=== PATIENT | female | born 1945 | race Caucasian/White ===

== ENCOUNTER 2023-01-30 00:43 | Inpatient (IN) | payer MEDICARE, BC ==
[~2023-01-30] VITALS: Ht 154.9 cm; Wt 54.4 kg
[2023-01-30] MEDS ORDERED: ATOR40TA PO (01:08)
[2023-01-30] MEDS ORDERED: METF-495 PO (01:08)
[2023-01-30] MEDS ORDERED: HYDR-3972 PO (01:08)
[2023-01-30] MEDS ORDERED: ALPR1TAB7 PO (01:08)
[2023-01-30] MEDS ORDERED: MECL-225 PO (01:08)
[2023-01-30] MEDS ORDERED: BUPR-53 PO (01:08)
[2023-01-30] MEDS ORDERED: ERGO500040 PO (01:08)
[2023-01-30] MEDS ORDERED: ESCI20TA PO (01:08)
[2023-01-30] MEDS ORDERED: diclofenac TOP (01:08)
[2023-01-30] MEDS ORDERED: EXEM25TA PO (01:08)
[2023-01-30] MEDS ORDERED: TRAM50TA2 PO (01:08)
[2023-01-30] MEDS ORDERED: ASPI81TA31 PO (01:08)
[2023-01-30] MEDS ORDERED: SITA100T PO (01:08)
[2023-01-30 01:32] LABS: BASOPHILS % (AUTO) 0.3 % (0.0-2.0); EOSINOPHILS # (AUTO) 0.1 K/uL (0.0-0.7); EOSINOPHILS % (AUTO) 0.6 % (0.0-7.0); HEMATOCRIT 42.6 % (31.2-41.9); HEMOGLOBIN 14.1 g/dL (10.9-14.3); LYMPHOCYTES # (AUTO) 8.2 K/uL (0.8-4.8); LYMPHOCYTES % (AUTO) 60.7 % (20.5-51.5); MEAN CORPUSCULAR HEMOGLOBIN 30.5 uug (24.7-32.8); MEAN CORPUSCULAR HGB CONC 33 g/dL (32.3-35.6); MEAN CORPUSCULAR VOLUME 91.9 fL (75.5-95.3); MONOCYTES # (AUTO) 0.5 K/uL (0.1-1.30); NEUTROPHILS # (AUTO) 4.6 K/uL (1.8-8.9); NEUTROPHILS % (AUTO) 34.4 % (38.5-71.5); PLATELET COUNT (AUTO) 254 K/uL (179-408); RED BLOOD CELL COUNT(AUTO) 4.63 MIL/uL (3.63-4.92); RED CELL DISTRIBUTION WIDTH 13.4 % (12.3-17.7); WHITE BLOOD COUNT (AUTO) 13.5 K/uL (3.8-11.8)
[2023-01-30 01:34] LABS: DIFFERENTIAL COMMENT 1
[2023-01-30 01:45] LABS: CALCIUM 9.4 mg/dL (8.5-10.1); CARBON DIOXIDE 29 mmol/L (21-32); CHLORIDE 103 mmol/L (98-107); GLUCOSE 287 mg/dL (74-106); POTASSIUM 3.6 mmol/L (3.5-5.1); SODIUM SERUM 140 mmol/L (136-145); UREA NITROGEN, BLOOD 21 mg/dL (7-18)
[2023-01-30 01:51] LABS: ALANINE AMINOTRANSFERASE 15 U/L (14-59); ALBUMIN 3.5 g/dL (3.4-5.0); ALKALINE PHOSPHATASE 68 U/L (50-136); ASPARTATE AMINOTRANSFERASE 6 U/L (15-37); BILIRUBIN,DIRECT 0.2 mg/dL (0.0-0.2); BILIRUBIN,TOTAL 0.4 mg/dL (0.2-1.0); TOTAL PROTEIN, SERUM 6.3 g/dL (6.4-8.2)
[2023-01-30 02:00] LABS: ETHANOL < 3 MG/DL (0-10)
[2023-01-30] MEDS ORDERED: ZOLPIDEM 5 MG TABLET PO PRN (04:45)
[2023-01-30] MEDS ORDERED: LORAZEPAM 0.5 MG TABLET PO PRN (04:45)
[2023-01-30] MEDS ORDERED: MAG HYDROX/AL HYDROX/SIMETH 30 ML LIQUID UDC PO PRN (04:45)
[2023-01-30] MEDS ORDERED: ACETAMINOPHEN 325 MG TABLET PO PRN (04:45)
[2023-01-30] MEDS ORDERED: MAGNESIUM HYDROXIDE 30 ML LIQUID UDC PO PRN (04:45)
[2023-01-30 08:08] VITALS: BP 151/71; TEMP 98; O2SAT 96
[2023-01-30] MEDS ORDERED: diphenhydrAMINE 50 MG CAPSULE PO PRN (09:00)
[2023-01-30] MEDS ORDERED: HYDROXYZINE PAMOATE 25 MG CAPSULE PO PRN (09:00)
[2023-01-30] MEDS: DULOXETINE 30 MG CAPSULE.DR PO SCH (09:00)
[2023-01-30] MEDS: ASPIRIN 81 MG TAB.CHEW PO SCH (11:30)
[2023-01-30] MEDS ORDERED: DEXTROSE 50% 50 ML DISP.SYRIN IV PRN (11:30)
[2023-01-30] MEDS ORDERED: EXEMESTANE 25 MG PO SCH (11:30)
[2023-01-30] MEDS ORDERED: ERGOCALCIFEROL 50,000 UNIT CAPSULE PO SCH (11:30)
[2023-01-30] MEDS ORDERED: HYDROCODONE/APAP 5-325MG TABLET PO PRN (11:30)
[2023-01-30] MEDS: BLOOD SUGAR DIAGNOSTIC 1 EACH STRIP VI SCH ×3 (11:30→21:22)
[2023-01-30 13:19] LABS: *BILIRUBIN,URIN NEGATIVE (NEGATIVE); *BLOOD, URINE NEGATIVE (NEGATIVE); *CLARITY,URINE CLEAR (CLEAR); *COLOR,URINE YELLOW (YELLOW); *KETONES,URINE TRACE (NEGATIVE); *PROTEIN,URINE NEGATIVE (NEGATIVE); *UROBILINOGEN,URINE 0.2 E.U./dl (NORMAL); LEUKOCYTE ESTERASE ,URINE NEGATIVE (NEGATIVE); NITRITE, URINE NEGATIVE (NEGATIVE); PH,URINE 5.5 (5.0-8.0); UGLUCOSE 2+ (NEGATIVE)
[2023-01-30] MEDS ORDERED: DULO30CA2 PO (13:19)
[2023-01-30 13:24] LABS: BACTERIA,URINE NONE SEEN /HPF (NONE SEEN); RBC,URINE 0-3 /HPF (0-3); SQUAMOUS EPITHELIAL CELL,UR FEW /HPF (NONE SEEN); WBC,URINE 0-3 /HPF (0-3)
[2023-01-30] MEDS ORDERED: DULOXETINE 30 MG CAPSULE.DR PO ONE (17:00)
[2023-01-30] MEDS ORDERED: TRAMADOL HCL 50 MG TABLET PO SCH (17:00)
[2023-01-30] MEDS: METFORMIN XR 500 MG TAB.SR.24H PO SCH (17:11)
[2023-01-30 20:00] VITALS: BP 164/79; TEMP 98; O2SAT 95
[2023-01-30] MEDS: ATORVASTATIN 40 MG TABLET PO SCH (21:00)
[2023-01-30] MEDS ORDERED: QUETIAPINE FUMARATE 25 MG TABLET PO SCH (21:00)
[2023-01-31 07:33] LABS: ALANINE AMINOTRANSFERASE 15 U/L (14-59); ALBUMIN 3.4 g/dL (3.4-5.0); ALKALINE PHOSPHATASE 65 U/L (50-136); ASPARTATE AMINOTRANSFERASE 7 U/L (15-37); BILIRUBIN,TOTAL 0.6 mg/dL (0.2-1.0); CALCIUM 8.9 mg/dL (8.5-10.1); CARBON DIOXIDE 25 mmol/L (21-32); CHLORIDE 105 mmol/L (98-107); CREATININE 0.6 mg/dL (0.6-1.3); GLUCOSE 203 mg/dL (74-106); POTASSIUM 3.9 mmol/L (3.5-5.1); SODIUM SERUM 139 mmol/L (136-145); UREA NITROGEN, BLOOD 8 mg/dL (7-18)
[2023-01-31] MEDS: BLOOD SUGAR DIAGNOSTIC 1 EACH STRIP VI SCH ×4 (07:39→20:39)
[2023-01-31 08:17] VITALS: BP 181/87; TEMP 97.9; O2SAT 96
[2023-01-31] MEDS: DULOXETINE 30 MG CAPSULE.DR PO SCH (09:00)
[2023-01-31] MEDS ORDERED: DULOXETINE 30 MG CAPSULE.DR PO SCH (09:00)
[2023-01-31] MEDS: ASPIRIN 81 MG TAB.CHEW PO SCH (09:00)
[2023-01-31 09:34] VITALS: BP 150/61; O2SAT 96
[2023-01-31] MEDS ORDERED: POLYVINYL ALCOHOL OPHT DROPS 15 ML BOTTLE EACHEYE SCH (13:00)
[2023-01-31] MEDS: POLYVINYL ALCOHOL OPHT DROPS 15 ML BOTTLE EACHEYE SCH ×2 (13:03→17:43)
[2023-01-31 16:20] VITALS: BP 164/74; TEMP 98; O2SAT 97
[2023-01-31] MEDS: NICOTINE 21 MG/24HR PATCH TD SCH (17:43)
[2023-01-31] MEDS: METFORMIN XR 500 MG TAB.SR.24H PO SCH ×3 (17:43→20:53)
[2023-01-31] MEDS: ATORVASTATIN 40 MG TABLET PO SCH (20:34)
[2023-01-31 20:49] VITALS: BP 165/76; TEMP 97.8; O2SAT 95
[2023-02-01] MEDS: BLOOD SUGAR DIAGNOSTIC 1 EACH STRIP VI SCH ×4 (06:56→20:23)
[2023-02-01 09:00] VITALS: BP 183/99; TEMP 98.4; O2SAT 98
[2023-02-01] MEDS: ASPIRIN 81 MG TAB.CHEW PO SCH ×2 (09:00→09:01)
[2023-02-01] MEDS: DULOXETINE 30 MG CAPSULE.DR PO SCH ×2 (09:00→09:01)
[2023-02-01] MEDS: POLYVINYL ALCOHOL OPHT DROPS 15 ML BOTTLE EACHEYE SCH ×3 (09:02→16:49)
[2023-02-01] MEDS: NICOTINE 21 MG/24HR PATCH TD SCH (09:02)
[2023-02-01] MEDS: ATORVASTATIN 40 MG TABLET PO SCH (20:22)
[2023-02-01 20:40] VITALS: BP 154/75; TEMP 98; O2SAT 96
[2023-02-02] MEDS: BLOOD SUGAR DIAGNOSTIC 1 EACH STRIP VI SCH ×4 (06:11→20:21)
[2023-02-02 08:47] VITALS: BP 184/75; TEMP 98; O2SAT 97
[2023-02-02] MEDS: NICOTINE 21 MG/24HR PATCH TD SCH (09:00)
[2023-02-02] MEDS: POLYVINYL ALCOHOL OPHT DROPS 15 ML BOTTLE EACHEYE SCH ×3 (09:00→17:00)
[2023-02-02] MEDS: DULOXETINE 30 MG CAPSULE.DR PO SCH (09:15)
[2023-02-02] MEDS: ASPIRIN 81 MG TAB.CHEW PO SCH (09:15)
[2023-02-02] MEDS: OLANZAPINE ZYDIS 5 MG TAB.RAPDIS PO SCH ×2 (09:16→17:21)
[2023-02-02] MEDS ORDERED: CLONIDINE-TTS 1 PATCH TD SCH (11:00)
[2023-02-02 16:15] VITALS: BP 114/79; TEMP 98; O2SAT 98
[2023-02-02] MEDS: METFORMIN XR 500 MG TAB.SR.24H PO SCH (18:00)
[2023-02-02 19:45] VITALS: BP 205/110; TEMP 98; O2SAT 98
[2023-02-02] MEDS ORDERED: CLONIDINE TTS 2 PATCH TD SCH (20:30)
[2023-02-02] MEDS: ATORVASTATIN 40 MG TABLET PO SCH (20:37)
[2023-02-02] MEDS ORDERED: CLONIDINE TTS 2 PATCH TD ONE (21:24)
[2023-02-02 21:40] VITALS: BP 155/105; TEMP 98; O2SAT 98
[2023-02-02 23:00] VITALS: BP 199/95; TEMP 98; O2SAT 98
[2023-02-02 23:05] VITALS: BP 202/105; TEMP 97.8; O2SAT 98
[2023-02-03] MEDS ORDERED: DIPH25CA83 PO (03:21)
[2023-02-03] MEDS ORDERED: ACET-3117 PO (03:21)
[2023-02-03] MEDS ORDERED: HYDR25CA PO (03:21)
[2023-02-03] MEDS ORDERED: MAG355OR18 PO (03:21)
[2023-02-03] MEDS ORDERED: OLAN5TAB6 PO (03:21)
[2023-02-03] MEDS ORDERED: POLY15DR17 OP (03:21)
[2023-02-03] MEDS ORDERED: NICO1PAT35 TD (03:21)
[2023-02-03] MEDS ORDERED: MAGN400O6 PO (03:21)
[2023-02-03] MEDS ORDERED: CLON1PAT2 TD (03:21)
[2023-02-04] MEDS ORDERED: NICO-625 TD (17:07)
[2023-02-04] MEDS ORDERED: METF-442 PO (17:10)
== END 2023-02-03 04:58 | disposition short-term general hospital (02) | DRG 885 ==
LOC: ER 00:59 → GPS 03:29
PROVIDERS: ADMIT Psychiatry & Neurology Psychiatry; ATTEND Nurse Practitioner Acute Care
DX: F33.3 Major depressive disorder, recurrent, severe with psychotic symptoms (principal); F06.1 Catatonic disorder due to known physiological condition; E11.65 Type 2 diabetes mellitus with hyperglycemia; R45.851 Suicidal ideations; C91.10 Chronic lymphocytic leukemia of B-cell type not having achieved remission; F29 Unspecified psychosis not due to a substance or known physiological condition; E78.5 Hyperlipidemia, unspecified; D64.9 Anemia, unspecified; Z79.84 Long term (current) use of oral hypoglycemic drugs; Z79.899 Other long term (current) drug therapy; Z85.3 Personal history of malignant neoplasm of breast; F41.9 Anxiety disorder, unspecified; Z20.822 Contact with and (suspected) exposure to COVID-19; Z73.6 Limitation of activities due to disability; Z87.440 Personal history of urinary (tract) infections
CPT/HCPCS: 36415; 85025; A4606; A4663; G0480

== ENCOUNTER 2023-01-30 11:42 | Emergency (ER) | payer MEDICARE, BC ==
[~2023-01-30] VITALS: Ht 157.5 cm; Wt 47.6 kg
[~2023-01-30 11:42] MED LIST: ALPR1TAB7 PO; ASPI81TA31 PO; ATOR40TA PO; BUPR-53 PO; ERGO500040 PO; ESCI20TA PO; EXEM25TA PO; HYDR-3972 PO; MECL-225 PO; METF-495 PO; SITA100T PO; TRAM50TA2 PO; diclofenac TOP
[2023-01-30] MEDS ORDERED: IV NORMAL SALINE 1000 ML BAG IV ONE (12:15)
[2023-01-30 12:44] LABS: BASOPHILS % (AUTO) 0.3 % (0.0-2.0); EOSINOPHILS # (AUTO) 0.1 K/uL (0.0-0.7); EOSINOPHILS % (AUTO) 0.9 % (0.0-7.0); HEMATOCRIT 38.1 % (31.2-41.9); HEMOGLOBIN 13.1 g/dL (10.9-14.3); LYMPHOCYTES # (AUTO) 8.6 K/uL (0.8-4.8); LYMPHOCYTES % (AUTO) 67.5 % (20.5-51.5); MEAN CORPUSCULAR HEMOGLOBIN 31.4 uug (24.7-32.8); MEAN CORPUSCULAR HGB CONC 34 g/dL (32.3-35.6); MEAN CORPUSCULAR VOLUME 91.6 fL (75.5-95.3); MONOCYTES # (AUTO) 0.7 K/uL (0.1-1.30); MONOCYTES % (AUTO) 5.1 % (0.0-11.0); NEUTROPHILS # (AUTO) 3.4 K/uL (1.8-8.9); NEUTROPHILS % (AUTO) 26.2 % (38.5-71.5); PLATELET COUNT (AUTO) 218 K/uL (179-408); RED BLOOD CELL COUNT(AUTO) 4.16 MIL/uL (3.63-4.92); RED CELL DISTRIBUTION WIDTH 13.8 % (12.3-17.7); WHITE BLOOD COUNT (AUTO) 12.8 K/uL (3.8-11.8)
[2023-01-30 12:49] LABS: DIFFERENTIAL COMMENT 1
[2023-01-30 12:50] LABS: CALCIUM 8.4 mg/dL (8.5-10.1); CARBON DIOXIDE 24 mmol/L (21-32); CHLORIDE 105 mmol/L (98-107); CREATININE 0.7 mg/dL (0.6-1.3); GLUCOSE 235 mg/dL (74-106); SODIUM SERUM 137 mmol/L (136-145); UREA NITROGEN, BLOOD 17 mg/dL (7-18)
[2023-01-30 12:56] LABS: AMMONIA < 10 umol/L (11-32)
[2023-01-30 13:03] LABS: ALANINE AMINOTRANSFERASE 9 U/L (14-59); ALBUMIN 3.2 g/dL (3.4-5.0); ALKALINE PHOSPHATASE 61 U/L (50-136); BILIRUBIN,TOTAL 0.5 mg/dL (0.2-1.0); NT-PRO BNP 107 pg/mL (0-125); TOTAL PROTEIN, SERUM 5.7 g/dL (6.4-8.2)
[2023-01-30 13:16] LABS: ASPARTATE AMINOTRANSFERASE 5 U/L (15-37)
[2023-01-30] MEDS ORDERED: DULO30CA2 PO (13:19)
[2023-01-30 14:16] LABS: *AMPHETAMINE, URINE NEGATIVE (NEGATIVE); *BARBITURATE, URINE NEGATIVE (NEGATIVE); *BENZODIAZEPINE, URINE NEGATIVE (NEGATIVE); *CANNABINOID, URINE NEGATIVE (NEGATIVE); *COCCAINE, URINE NEGATIVE (NEGATIVE); *OPIATE, URINE NEGATIVE (NEGATIVE); *PHENCYCLIDINE SCREEN,URINE NEGATIVE (NEGATIVE)
[2023-01-30 14:17] LABS: FENTANYL, URINE NEGATIVE (NEGATIVE)
[2023-01-30 15:20] LABS: ACETONE, SERUM NEGATIVE (NEGATIVE)
[2023-01-30 15:55] VITALS: O2SAT 97
== END 2023-01-30 16:20 ==
LOC: ER 11:42
DX: R53.1 Weakness (principal); R07.89 Other chest pain; E11.9 Type 2 diabetes mellitus without complications; E78.5 Hyperlipidemia, unspecified; Z86.2 Personal history of diseases of the blood and blood-forming organs and certain disorders involving the immune mechanism; Z79.899 Other long term (current) drug therapy; Z79.82 Long term (current) use of aspirin
CPT/HCPCS: 99284; 96360; 70450; 71045; 80053; 82009; 82140; 82962; 83880; 84443; 85025; 87040; 84484; 36415; 80307; J7040; A4606; A4663; C1758

== ENCOUNTER 2023-02-03 00:24 | Inpatient (IN) | payer MEDICARE, BC ==
[~2023-02-03] VITALS: Ht 157.5 cm; Wt 48.1 kg
[~2023-02-03 00:24] MED LIST changes: -ALPR1TAB7 PO; -BUPR-53 PO; +DULO30CA2 PO; -ESCI20TA PO; -MECL-225 PO; -SITA100T PO; -TRAM50TA2 PO; -diclofenac TOP
[2023-02-03 01:02] LABS: BASOPHILS # (AUTO) 0.1 K/UL (0.0-0.2); BASOPHILS % (AUTO) 0.6 % (0.0-2.0); EOSINOPHILS # (AUTO) 0.1 K/uL (0.0-0.7); EOSINOPHILS % (AUTO) 0.9 % (0.0-7.0); HEMATOCRIT 47.1 % (31.2-41.9); HEMOGLOBIN 15.8 g/dL (10.9-14.3); LYMPHOCYTES # (AUTO) 7.2 K/uL (0.8-4.8); LYMPHOCYTES % (AUTO) 60.7 % (20.5-51.5); MEAN CORPUSCULAR HEMOGLOBIN 30.8 uug (24.7-32.8); MEAN CORPUSCULAR HGB CONC 34 g/dL (32.3-35.6); MEAN CORPUSCULAR VOLUME 92.1 fL (75.5-95.3); MONOCYTES # (AUTO) 0.6 K/uL (0.1-1.30); NEUTROPHILS # (AUTO) 3.9 K/uL (1.8-8.9); NEUTROPHILS % (AUTO) 32.8 % (38.5-71.5); PLATELET COUNT (AUTO) 262 K/uL (179-408); RED BLOOD CELL COUNT(AUTO) 5.12 MIL/uL (3.63-4.92); RED CELL DISTRIBUTION WIDTH 13.9 % (12.3-17.7); WHITE BLOOD COUNT (AUTO) 11.9 K/uL (3.8-11.8)
[2023-02-03 01:03] LABS: DIFFERENTIAL COMMENT 1
[2023-02-03 01:11] LABS: CALCIUM 10.1 mg/dL (8.5-10.1); CARBON DIOXIDE 29 mmol/L (21-32); CHLORIDE 99 mmol/L (98-107); CREATININE 1.1 mg/dL (0.6-1.3); GLUCOSE 289 mg/dL (74-106); POTASSIUM 3.7 mmol/L (3.5-5.1); SODIUM SERUM 137 mmol/L (136-145); UREA NITROGEN, BLOOD 22 mg/dL (7-18)
[2023-02-03 01:25] LABS: ALBUMIN 4.1 g/dL (3.4-5.0); BILIRUBIN,DIRECT 0.1 mg/dL (0.0-0.2); BILIRUBIN,TOTAL 0.7 mg/dL (0.2-1.0); TOTAL PROTEIN, SERUM 7.3 g/dL (6.4-8.2)
[2023-02-03] MEDS ORDERED: IV NORMAL SALINE 1000 ML BAG IV ONE (02:15)
[2023-02-03] MEDS ORDERED: IOHEXOL 350 100 ML INFUS..BTL ONE (02:50)
[2023-02-03] MEDS ORDERED: SWABABLE VALVE TRANSFER SET EA MC ONE (02:50)
[2023-02-03] MEDS ORDERED: IV NORMAL SALINE 250 ML IV ONE (02:50)
[2023-02-03] MEDS ORDERED: NICO1PAT35 TD (03:21)
[2023-02-03] MEDS ORDERED: CLON1PAT2 TD (03:21)
[2023-02-03] MEDS ORDERED: MAGN400O6 PO (03:21)
[2023-02-03] MEDS ORDERED: HYDR25CA PO (03:21)
[2023-02-03] MEDS ORDERED: OLAN5TAB6 PO (03:21)
[2023-02-03] MEDS ORDERED: POLY15DR17 OP (03:21)
[2023-02-03] MEDS ORDERED: DIPH25CA83 PO (03:21)
[2023-02-03] MEDS ORDERED: ACET-3117 PO (03:21)
[2023-02-03] MEDS ORDERED: MAG355OR18 PO (03:21)
[2023-02-03] MEDS ORDERED: hydrALAZINE HCL 20 MG/1 ML VIAL IV ONE (04:00)
[2023-02-03] MEDS ORDERED: hydrALAZINE HCL 20 MG/1 ML VIAL ONE (04:01)
[2023-02-03] MEDS ORDERED: INSULIN REGULAR, HUMAN 300 UNITS/3 ML VIAL SQ PRN (06:30)
[2023-02-03] MEDS ORDERED: REMEDY ESSENTIAL ZINC PASTE 113 GM TP PRN (06:30)
[2023-02-03] MEDS ORDERED: Medication Not On Formulary EA (Acetaminophen 650 MG) PO PRN (06:30)
[2023-02-03] MEDS ORDERED: HYDROXYZINE PAMOATE 25 MG CAPSULE PO PRN (06:30)
[2023-02-03] MEDS ORDERED: DEXTROSE 50% 50 ML DISP.SYRIN IV PRN (06:30)
[2023-02-03] MEDS ORDERED: ACETAMINOPHEN 325 MG TABLET PO PRN (06:30)
[2023-02-03] MEDS ORDERED: METOPROLOL TARTRATE 50 MG TABLET PO SCH (06:30)
[2023-02-03] MEDS ORDERED: ONDANSETRON 4 MG/2 ML VIAL IV PRN (06:30)
[2023-02-03] MEDS ORDERED: diphenhydrAMINE 25 MG CAP PO PRN (06:30)
[2023-02-03] MEDS ORDERED: MAGNESIUM HYDROXIDE 30 ML LIQUID UDC PO PRN ×2 (06:30)
[2023-02-03] MEDS ORDERED: METFORMIN HCL 500 MG TABLET PO SCH (08:29)
[2023-02-03] MEDS: BLOOD SUGAR DIAGNOSTIC 1 EACH STRIP VI SCH ×4 (08:45→21:04)
[2023-02-03 09:15] VITALS: BP 157/75; TEMP 98.5; O2SAT 98
[2023-02-03] MEDS: DULOXETINE 30 MG CAPSULE.DR PO SCH (09:24)
[2023-02-03] MEDS: NICOTINE 21 MG/24HR PATCH TD SCH (10:29)
[2023-02-03] MEDS: ASPIRIN 81 MG TAB.CHEW PO SCH (10:30)
[2023-02-03] MEDS: METOPROLOL TARTRATE 25 MG TABLET PO SCH ×2 (10:30→21:00)
[2023-02-03] MEDS: IV 1/2NS 1000 ML 1,000 ML IV PRN ×2 (12:11→22:25)
[2023-02-03] MEDS ORDERED: hydrALAZINE HCL 20 MG/1 ML VIAL IV PRN (12:15)
[2023-02-03] MEDS: INSULIN REGULAR, HUMAN 300 UNIT/3 ML VIAL SQ PRN ×2 (12:27→17:40)
[2023-02-03 15:06] VITALS: BP 133/69; TEMP 98; O2SAT 95
[2023-02-03 15:12] VITALS: BP 137/71; TEMP 98.9; O2SAT 96
[2023-02-03 20:06] VITALS: BP 129/66; TEMP 98.8; O2SAT 96
[2023-02-03] MEDS: ATORVASTATIN 40 MG TABLET PO SCH (21:00)
[2023-02-03] MEDS: IV D5 1/2 NS 1000 ML 1,000 ML IV PRN (23:01)
[2023-02-04 05:41] VITALS: BP 148/75; TEMP 97.9; O2SAT 96
[2023-02-04] MEDS: BLOOD SUGAR DIAGNOSTIC 1 EACH STRIP VI SCH ×4 (06:30→21:00)
[2023-02-04 07:15] LABS: BASOPHILS % (AUTO) 0.3 % (0.0-2.0); EOSINOPHILS # (AUTO) 0.1 K/uL (0.0-0.7); HEMOGLOBIN 12.8 g/dL (10.9-14.3); LYMPHOCYTES # (AUTO) 6.8 K/uL (0.8-4.8); LYMPHOCYTES % (AUTO) 57.4 % (20.5-51.5); MEAN CORPUSCULAR HEMOGLOBIN 30.3 uug (24.7-32.8); MEAN CORPUSCULAR HGB CONC 33 g/dL (32.3-35.6); MEAN CORPUSCULAR VOLUME 91.9 fL (75.5-95.3); MONOCYTES # (AUTO) 0.6 K/uL (0.1-1.30); MONOCYTES % (AUTO) 5.2 % (0.0-11.0); NEUTROPHILS # (AUTO) 4.3 K/uL (1.8-8.9); NEUTROPHILS % (AUTO) 36.1 % (38.5-71.5); PLATELET COUNT (AUTO) 212 K/uL (179-408); RED BLOOD CELL COUNT(AUTO) 4.24 MIL/uL (3.63-4.92); RED CELL DISTRIBUTION WIDTH 13.8 % (12.3-17.7); WHITE BLOOD COUNT (AUTO) 11.8 K/uL (3.8-11.8)
[2023-02-04 07:20] LABS: DIFFERENTIAL COMMENT 1
[2023-02-04 07:40] LABS: CALCIUM 8.5 mg/dL (8.5-10.1); CARBON DIOXIDE 24 mmol/L (21-32); CHLORIDE 102 mmol/L (98-107); CREATININE 0.7 mg/dL (0.6-1.3); GLUCOSE 257 mg/dL (74-106); MAGNESIUM 1.4 mg/dL (1.8-2.4); POTASSIUM 3.1 mmol/L (3.5-5.1); SODIUM SERUM 136 mmol/L (136-145); UREA NITROGEN, BLOOD 14 mg/dL (7-18)
[2023-02-04] MEDS: OLANZAPINE ZYDIS 5 MG TAB.RAPDIS PO SCH ×2 (08:36→17:13)
[2023-02-04] MEDS: ASPIRIN 81 MG TAB.CHEW PO SCH (08:37)
[2023-02-04] MEDS: DULOXETINE 30 MG CAPSULE.DR PO SCH (08:37)
[2023-02-04] MEDS: METOPROLOL TARTRATE 25 MG TABLET PO SCH ×2 (08:37→21:00)
[2023-02-04] MEDS: NICOTINE 21 MG/24HR PATCH TD SCH (08:38)
[2023-02-04] MEDS: IV D5 1/2 NS 1000 ML 1,000 ML IV PRN (09:35)
[2023-02-04] MEDS: INSULIN REGULAR, HUMAN 300 UNIT/3 ML VIAL SQ PRN ×2 (11:47→17:14)
[2023-02-04 11:57] VITALS: BP 143/87; TEMP 98.4; O2SAT 97
[2023-02-04 12:45] VITALS: BP 118/47; TEMP 97.6; O2SAT 98
[2023-02-04] MEDS ORDERED: GADOTERATE MEGLUMINE 10 MMOL/20 ML VIAL IV ONE (14:35)
[2023-02-04 15:14] VITALS: BP 131/73; TEMP 97.6; O2SAT 92
[2023-02-04] MEDS: MAGNESIUM OXIDE 400 MG TABLET PO SCH ×2 (16:09→20:00)
[2023-02-04] MEDS ORDERED: NICO-625 TD (17:07)
[2023-02-04] MEDS ORDERED: METF-442 PO (17:10)
[2023-02-04 20:00] VITALS: BP 114/52; TEMP 98.6; O2SAT 97
[2023-02-04] MEDS: ATORVASTATIN 40 MG TABLET PO SCH (21:00)
[2023-02-05] MEDS: IV D5 1/2 NS 1000 ML 1,000 ML IV PRN (01:49)
[2023-02-05 05:28] VITALS: BP 129/61; TEMP 98.4; O2SAT 94
[2023-02-05] MEDS: BLOOD SUGAR DIAGNOSTIC 1 EACH STRIP VI SCH ×4 (06:45→21:23)
[2023-02-05 07:11] LABS: BASOPHILS % (AUTO) 0.4 % (0.0-2.0); EOSINOPHILS # (AUTO) 0.1 K/uL (0.0-0.7); HEMATOCRIT 34.8 % (31.2-41.9); HEMOGLOBIN 11.8 g/dL (10.9-14.3); LYMPHOCYTES # (AUTO) 4.8 K/uL (0.8-4.8); LYMPHOCYTES % (AUTO) 59.1 % (20.5-51.5); MEAN CORPUSCULAR HEMOGLOBIN 30.7 uug (24.7-32.8); MEAN CORPUSCULAR HGB CONC 34 g/dL (32.3-35.6); MEAN CORPUSCULAR VOLUME 90.8 fL (75.5-95.3); MONOCYTES # (AUTO) 0.5 K/uL (0.1-1.30); MONOCYTES % (AUTO) 6.1 % (0.0-11.0); NEUTROPHILS # (AUTO) 2.7 K/uL (1.8-8.9); NEUTROPHILS % (AUTO) 33.4 % (38.5-71.5); PLATELET COUNT (AUTO) 184 K/uL (179-408); RED BLOOD CELL COUNT(AUTO) 3.83 MIL/uL (3.63-4.92); RED CELL DISTRIBUTION WIDTH 13.6 % (12.3-17.7); WHITE BLOOD COUNT (AUTO) 8.1 K/uL (3.8-11.8)
[2023-02-05 07:26] LABS: DIFFERENTIAL COMMENT 1
[2023-02-05 07:28] LABS: CALCIUM 8.5 mg/dL (8.5-10.1); CARBON DIOXIDE 25 mmol/L (21-32); CHLORIDE 103 mmol/L (98-107); CREATININE 0.6 mg/dL (0.6-1.3); GLUCOSE 323 mg/dL (74-106); MAGNESIUM 1.5 mg/dL (1.8-2.4); PHOSPHOROUS 3.4 mg/dL (2.5-4.9); POTASSIUM 3.4 mmol/L (3.5-5.1); SODIUM SERUM 136 mmol/L (136-145); UREA NITROGEN, BLOOD 8 mg/dL (7-18)
[2023-02-05] MEDS: METOPROLOL TARTRATE 25 MG TABLET PO SCH ×2 (08:33→21:18)
[2023-02-05] MEDS: DULOXETINE 30 MG CAPSULE.DR PO SCH (08:34)
[2023-02-05] MEDS: METFORMIN HCL 500 MG TABLET PO SCH ×2 (08:34→18:00)
[2023-02-05] MEDS: ASPIRIN 81 MG TAB.CHEW PO SCH (08:34)
[2023-02-05] MEDS: OLANZAPINE ZYDIS 5 MG TAB.RAPDIS PO SCH ×2 (08:34→17:00)
[2023-02-05] MEDS: NICOTINE 21 MG/24HR PATCH TD SCH (08:35)
[2023-02-05] MEDS: INSULIN REGULAR, HUMAN 300 UNIT/3 ML VIAL SQ PRN (08:40)
[2023-02-05] MEDS ORDERED: POTASSIUM CHLORIDE 20 MEQ TAB.PRT.SR PO SCH (10:15)
[2023-02-05] MEDS ORDERED: POTASSIUM CHLORIDE 50 ML IV SCH (10:15)
[2023-02-05] MEDS: MAGNESIUM SULFATE/D5W 100 ML IV SCH ×2 (11:00→11:46)
[2023-02-05 15:09] VITALS: BP 115/60; TEMP 98.2; O2SAT 94
[2023-02-05 20:23] VITALS: BP 138/72; TEMP 98.3; O2SAT 95
[2023-02-05] MEDS: ATORVASTATIN 40 MG TABLET PO SCH (21:18)
[2023-02-06 05:45] VITALS: BP 168/76; TEMP 97.7; O2SAT 93
[2023-02-06] MEDS: BLOOD SUGAR DIAGNOSTIC 1 EACH STRIP VI SCH ×4 (06:44→21:12)
[2023-02-06 07:11] LABS: BASOPHILS % (AUTO) 0.4 % (0.0-2.0); EOSINOPHILS # (AUTO) 0.1 K/uL (0.0-0.7); EOSINOPHILS % (AUTO) 1.2 % (0.0-7.0); HEMATOCRIT 36.3 % (31.2-41.9); HEMOGLOBIN 12.3 g/dL (10.9-14.3); LYMPHOCYTES # (AUTO) 5.5 K/uL (0.8-4.8); LYMPHOCYTES % (AUTO) 58.7 % (20.5-51.5); MEAN CORPUSCULAR HGB CONC 34 g/dL (32.3-35.6); MEAN CORPUSCULAR VOLUME 91.2 fL (75.5-95.3); MONOCYTES # (AUTO) 0.5 K/uL (0.1-1.30); MONOCYTES % (AUTO) 5.1 % (0.0-11.0); NEUTROPHILS # (AUTO) 3.3 K/uL (1.8-8.9); NEUTROPHILS % (AUTO) 34.6 % (38.5-71.5); PLATELET COUNT (AUTO) 206 K/uL (179-408); RED BLOOD CELL COUNT(AUTO) 3.98 MIL/uL (3.63-4.92); RED CELL DISTRIBUTION WIDTH 13.3 % (12.3-17.7); WHITE BLOOD COUNT (AUTO) 9.4 K/uL (3.8-11.8)
[2023-02-06 07:22] LABS: CALCIUM 8.9 mg/dL (8.5-10.1); CARBON DIOXIDE 26 mmol/L (21-32); CHLORIDE 105 mmol/L (98-107); CREATININE 0.5 mg/dL (0.6-1.3); GLUCOSE 175 mg/dL (74-106); MAGNESIUM 1.7 mg/dL (1.8-2.4); PHOSPHOROUS 3.6 mg/dL (2.5-4.9); POTASSIUM 3.6 mmol/L (3.5-5.1); SODIUM SERUM 137 mmol/L (136-145); UREA NITROGEN, BLOOD 8 mg/dL (7-18)
[2023-02-06 07:23] LABS: DIFFERENTIAL COMMENT 1
[2023-02-06] MEDS: METFORMIN HCL 500 MG TABLET PO SCH ×2 (08:44→15:56)
[2023-02-06] MEDS: NICOTINE 21 MG/24HR PATCH TD SCH (08:44)
[2023-02-06] MEDS: ASPIRIN 81 MG TAB.CHEW PO SCH (08:44)
[2023-02-06] MEDS: DULOXETINE 30 MG CAPSULE.DR PO SCH (08:45)
[2023-02-06] MEDS: OLANZAPINE ZYDIS 5 MG TAB.RAPDIS PO SCH ×2 (08:45→21:44)
[2023-02-06] MEDS: METOPROLOL TARTRATE 25 MG TABLET PO SCH ×2 (08:46→21:45)
[2023-02-06] MEDS: MAGNESIUM SULFATE/D5W 100 ML IV SCH ×2 (09:45→10:45)
[2023-02-06 11:07] VITALS: BP 123/66; TEMP 97.6; O2SAT 94
[2023-02-06 15:13] VITALS: BP 128/63; TEMP 98.4; O2SAT 96
[2023-02-06] MEDS: INSULIN REGULAR, HUMAN 300 UNIT/3 ML VIAL SQ PRN (16:03)
[2023-02-06] MEDS ORDERED: MAGNESIUM OXIDE 400 MG TABLET PO SCH (17:00)
[2023-02-06 20:00] VITALS: BP 118/56; TEMP 98.4; O2SAT 94
[2023-02-06] MEDS: ATORVASTATIN 40 MG TABLET PO SCH (21:43)
[2023-02-06 21:45] VITALS: BP 118/56
[2023-02-09] MEDS ORDERED: CLONIDINE TTS 2 PATCH TD SCH (21:00)
== END 2023-02-06 22:30 | disposition short-term general hospital (02) | DRG 57 ==
LOC: ER 00:26 → TELE3 08:17 → MEDSURG3 02-04 10:28
PROVIDERS: ADMIT Internal Medicine; ATTEND Student in an Organized Health Care Education/Training Program
PROC: 05HC33Z Insertion of Infusion Device into Left Basilic Vein, Percutaneous Approach (ICD-10-PCS; principal; 2023-02-04)
DX: G91.9 Hydrocephalus, unspecified (principal); C91.10 Chronic lymphocytic leukemia of B-cell type not having achieved remission; F33.3 Major depressive disorder, recurrent, severe with psychotic symptoms; R45.851 Suicidal ideations; N17.9 Acute kidney failure, unspecified; I16.0 Hypertensive urgency; G93.40 Encephalopathy, unspecified; E83.42 Hypomagnesemia; E78.5 Hyperlipidemia, unspecified; E87.6 Hypokalemia; D45 Polycythemia vera; D64.9 Anemia, unspecified; E11.9 Type 2 diabetes mellitus without complications; Z79.84 Long term (current) use of oral hypoglycemic drugs; Z79.899 Other long term (current) drug therapy; Z87.440 Personal history of urinary (tract) infections; I11.9 Hypertensive heart disease without heart failure; Z79.811 Long term (current) use of aromatase inhibitors; Z86.73 Personal history of transient ischemic attack (TIA), and cerebral infarction without residual deficits; Z85.3 Personal history of malignant neoplasm of breast; Z90.10 Acquired absence of unspecified breast and nipple; F06.1 Catatonic disorder due to known physiological condition
CPT/HCPCS: 36415; 70553; 71045; 71275; 83735; 84100; 84484; 85025; 85730; 93005; 93307; A4663; A9575; G0378; J0360; J1815; J3475; J7040; Q9967